=== PATIENT | male | born 1960 | race Caucasian/White ===

== ENCOUNTER 2016-08-11 15:39 | Emergency (ER) | payer SELFPAY ==
[2006-01-17 22:35] VITALS: BP 142/76
[~2016-08-11] VITALS: Ht 177.8 cm; Wt 88.6 kg
[~2016-08-11 15:39] MED LIST: AMBIEN10 MG PO; ANTIVERT 25MG25 MG PO; BACTRIM DS 8001 TAB PO; CEPHALEXIN500 M1 PO; FENTANYL 50MCG TP; FLEXERIL 1010 MG/TAB PO; LORTAB 5/500 501 TAB PO; NO HOME MEDICATIONS; NORCO 325 MG-101 TAB; NORCO 325 MG-101 TAB PO; NORCO 325 MG-51 TAB PO; NORCO 325 MG-7.1 TAB PO; PRINIVIL10 MG PO; PROTONIX 40MG T40 MG PO; PROZAC 10MG10 MG PO; PROZAC20 MG PO; ULTRAM50 MG PO; ZOFRAN 4MG T4 MG/TAB PO; [UNRECOGNIZED DRUG - REMARK]
[2016-08-11 15:40] VITALS: TEMP 97
[2016-08-11 17:13] LABS: BASO % 0.6 % (0.0-2.0); EOS # 0.4 (0.0-0.7); EOS % 5.3 % (0-4.0); GRAN # 3.8 (1.4-6.5); GRAN % 55.8 % (42.2-75.2); LYMPH % 29.6 % (20.0-51.0); MEAN CELL VOLUME 92 fl (80.0-100.0); MEAN CORPUSCULAR HGB CONC 34 g/dl (33.0-37.0); MEAN PLATELET VOLUME 10.1 fl (7.4-10.4); MONO # 0.5 (0.1-0.6); PLATELET COUNT 166 K/mm3 (130-400); RED BLOOD COUNT 3.43 M/mm3 (4.20-5.60); REDCELL DISTRIBUTION WIDTH-CV 13.9 % (11.5-14.5); WHITE BLOOD COUNT 6.8 K/mm3 (4.8-10.8)
[2016-08-11 17:14] LABS: HEMATOCRIT 31.5 % (42.0-52.0); HEMOGLOBIN 10.7 g/dl (13.5-18.0); MEAN CORPUSCULAR HEMOGLOBIN 31 pg (27.0-31.0)
[2016-08-11 17:30] LABS: ADJUSTED CALCIUM 9.1 mg/dL (8.4-10.2); ALBUMIN 3.7 gm/dL (3.5-5.0); BILIRUBIN,TOTAL 0.5 mg/dL (0.0-1.0); CALCIUM 8.9 mg/dL (8.4-10.2); CREATININE, serum 0.62 mg/dL (0.66-1.25); POTASSIUM 3.5 mmol/L (3.4-5.0); TOTAL PROTEIN 6.5 gm/dL (6.4-8.2)
[2016-08-11 20:27] VITALS: BP 110/65; PULSE 78
== END 2016-08-11 20:28 | disposition home or self-care (01) ==
LOC: COL.ER 15:39
PROVIDERS: Emergency Medicine
DX: S00.81XA Abrasion of other part of head, initial encounter (principal); F10.120 Alcohol abuse with intoxication, uncomplicated; Y90.8 Blood alcohol level of 240 mg/100 ml or more; W01.198A Fall on same level from slipping, tripping and stumbling with subsequent striking against other object, initial encounter; I10 Essential (primary) hypertension; F17.210 Nicotine dependence, cigarettes, uncomplicated